=== PATIENT | female | born 1935 | race Caucasian/White ===

== ENCOUNTER → 2022-07-11 13:40 | Outpatient (BNVA) | payer OTHER, SELFPAY | PROVIDERS: PCP Family Medicine; Referring Provider Family Medicine; Visit Provider Specialist | DX: G20 Parkinson's disease (principal); G62.9 Polyneuropathy, unspecified; R55 Syncope and collapse; G31.84 Mild cognitive impairment of uncertain or unknown etiology | CPT/HCPCS: 82607; 82746; 84425; 85651; 86140; 86334 ==